=== PATIENT | male | born 1985 | race Caucasian/White ===

== ENCOUNTER 2018-07-03 07:11 | Day surgery (SDC) | payer OTHER ==
[~2018-07-03 07:11] MED LIST: GLYCOPYRROLATE INJ 0.2 MG/ML 2 ML VIAL As Ordered; HYDROmorphone HCL 2 MG/ML 1ML VIAL (J1170) As Ordered; KETOROLAC 60 MG/2 ML VIAL (J1885) As Ordered; LIDOCAINE 2% INJ 100 MG/5 ML SDV (FOR ANES.) As Ordered; LIDOCAINE 2% JELLY 30 ML As Ordered; MIDAZOLAM INJ 2 MG/2 ML VIAL (J2250) As Ordered; NEOSTIGMINE 10 MG/10 ML VIAL (J2710) As Ordered; ONDANSETRON 4MG/2ML VIAL (J2405) As Ordered; PROPOFOL 200 MG/20 ML VIAL As Ordered; ROCURONIUM BROMIDE 50 MG/5 ML VIAL As Ordered; dexameTHASONE 4 MG/ML 1ML VIAL (J1100) As Ordered; fentaNYL 100 MCG/2 ML INJECTION (J3010) As Ordered
[2018-07-03] MEDS ORDERED: dexameTHASONE 4 MG/ML 1ML VIAL (J1100) As Ordered (07:13)
[2018-07-03] MEDS: TRANEXAMIC ACID 100 MG/ML 10ML VIAL As Ordered (07:16)
[2018-07-03] MEDS: EPINEPHrine 1MG/ML INJ 30ML MD-VIAL As Ordered (07:17)
[2018-07-03] MEDS: LR 1,000 ML IV ×2 (07:30→11:00)
[2018-07-03] MEDS: PERCOCET 5MG/325MG TAB PO ×2 (07:30→13:17)
[2018-07-03] MEDS: GABAPENTIN 300 MG CAP PO ×2 (07:30→09:00)
[2018-07-03] MEDS: CelecoXIB 400 MG CAP PO (07:30)
[2018-07-03] MEDS: BACITRACIN PWD 50,000 UNITS VIAL As Ordered (08:28)
[2018-07-03] MEDS: BUPIVACAINE/EPIN 0.5% 30 ML VIAL As Ordered (08:28)
[2018-07-03] MEDS ORDERED: ROCURONIUM BROMIDE 50 MG/5 ML VIAL As Ordered (08:48)
[2018-07-03] MEDS ORDERED: fentaNYL 100 MCG/2 ML INJECTION (J3010) As Ordered (08:53)
[2018-07-03] MEDS: CelecoXIB (CeleBREX) 100 MG CAP PO (09:00)
[2018-07-03] MEDS: BUPIVACAINE LIPOSOME/PF 1.3% 20 ML VIAL (13.3MG/ML)(EXPAREL) As Ordered (09:45)
[2018-07-03] MEDS: BUPIVACAINE HCL 0.25% 30 ML VIAL As Ordered (09:45)
[2018-07-03] MEDS: THROMBIN SOLN 20,000 UNITS KIT As Ordered (10:03)
[2018-07-03] MEDS ORDERED: HYDROMORPHONE HCL 0.5 MG/ 0.5 ML SYRINGE (J1170 PER 1) IV ×4 (10:30→12:00)
[2018-07-03] MEDS ORDERED: CYCLOBENZAPRINE 10 MG TAB PO (10:45)
[2018-07-03] MEDS ORDERED: PERCOCET 5MG/325MG TAB PO (10:45)
[2018-07-03] MEDS ORDERED: ONDANSETRON 4MG/2ML VIAL (J2405) IV (11:00)
[2018-07-03] MEDS ORDERED: fentaNYL 100 MCG/2 ML INJECTION (J3010) IV (11:00)
[2018-07-03] MEDS: D5W/LR 1,000 ML IV (11:52)
[2018-07-03] MEDS ORDERED: GABAPENTIN 300 MG CAP PO (16:00)
[2018-07-03] MEDS ORDERED: CelecoXIB (CeleBREX) 100 MG CAP PO (21:00)
== END 2018-07-03 15:50 | disposition home or self-care (01) ==
LOC: M SDC 07:11 → M MS5PR 11:14 → M SDC 15:50
DX: M54.16 Radiculopathy, lumbar region (principal); F17.210 Nicotine dependence, cigarettes, uncomplicated; Z79.899 Other long term (current) drug therapy
CPT/HCPCS: 63030

== ENCOUNTER → 2022-09-19 | Outpatient (CLI) | payer OTHER ==
[~2022-09-19] MED LIST changes: +BARIUM SULFATE 700 MG TABLET (E-Z-DISK) As Ordered ONE; +E-Z-PAQUE 96% w/w SUSP 176GM BTL As Ordered ONE; +GABA-282 PO; -GLYCOPYRROLATE INJ 0.2 MG/ML 2 ML VIAL As Ordered; -HYDROmorphone HCL 2 MG/ML 1ML VIAL (J1170) As Ordered; -KETOROLAC 60 MG/2 ML VIAL (J1885) As Ordered; -LIDOCAINE 2% INJ 100 MG/5 ML SDV (FOR ANES.) As Ordered; -LIDOCAINE 2% JELLY 30 ML As Ordered; -MIDAZOLAM INJ 2 MG/2 ML VIAL (J2250) As Ordered; -NEOSTIGMINE 10 MG/10 ML VIAL (J2710) As Ordered; -ONDANSETRON 4MG/2ML VIAL (J2405) As Ordered; -PROPOFOL 200 MG/20 ML VIAL As Ordered; -ROCURONIUM BROMIDE 50 MG/5 ML VIAL As Ordered; +VARIBAR NECTAR 40% w/v 240ML SUSP BTL As Ordered ONE; +VARIBAR PUDDING 40% w/v 230ML TUBE As Ordered ONE; -dexameTHASONE 4 MG/ML 1ML VIAL (J1100) As Ordered; -fentaNYL 100 MCG/2 ML INJECTION (J3010) As Ordered
== END ==
LOC: M RAD 10:53
PROVIDERS: ATTEND Physician Assistant
DX: R13.10 Dysphagia, unspecified (principal)

== ENCOUNTER → 2023-11-28 | Outpatient (REF) ==
[~2023-11-28] MED LIST changes: -BARIUM SULFATE 700 MG TABLET (E-Z-DISK) As Ordered ONE; -E-Z-PAQUE 96% w/w SUSP 176GM BTL As Ordered ONE; -VARIBAR NECTAR 40% w/v 240ML SUSP BTL As Ordered ONE; -VARIBAR PUDDING 40% w/v 230ML TUBE As Ordered ONE
== END ==
LOC: M PLAIMG 11:18
PROVIDERS: ATTEND Internal Medicine
DX: R52 Pain, unspecified (principal)